=== PATIENT | male | born 1980 | race Asian ===

== ENCOUNTER 2017-04-28 23:56 | Emergency (ER) | payer OTHER ==
[~2017-04-28] VITALS: Ht 170.2 cm; Wt 70.3 kg
--- NOTE | 2017-04-28 23:56 | NUR ---
Patient to ER CHAIR to gown for evaluation. Side rails up. Report given to ANATOLIY MCKEON.
--- NOTE | 2017-04-28 23:58 | NUR ---
ER at bedside examining patient.
--- NOTE | 2017-04-28 23:58 | NUR ---
Pt came into the ER in stable condition. Pt here for medical clearance and sent by [facility]. Pt stated that he came in contact w/ a patient who tested positive for Scabies on the 04/22/17. Pt stated that he medicated w/ Permethrin 2 days later as directed from [facility]. Pt present w/ rash to right hand. -itchy. No acute distress noted at this time, will continue to monitor
[2017-04-28 23:59] VITALS: BP_SYST 152
--- NOTE | 2017-04-29 00:30 | NUR ---
Perform scraping of of right hand onto speciman glass, pt tolerated procedure well
[2017-04-29 00:45] VITALS: BP_SYST 152
--- NOTE | 2017-04-29 00:45 | NUR ---
Patient given written and verbal discharge instructions and verbalizes understanding. ER MD PRITCHETT discussed with patient the results and treatment provided. Patient in stable condition. ID arm band removed. IV catheter removed intact and dressing applied, no active bleeding. NO Rx given. Patient educated on pain management and to follow up with PMD. Pain Scale 0/10. Opportunity for questions provided and answered.
== END 2017-04-29 00:45 | disposition home or self-care (01) ==
LOC: SED 23:56
DX: Z20.89 Contact with and (suspected) exposure to other communicable diseases (principal)
CPT/HCPCS: 87210-TC; 99283